=== PATIENT | female | born 1995 | race American Indian/Alaskan Native ===

== ENCOUNTER 2017-01-31 15:33 | Emergency (ER) | payer MEDICAID, OTHER ==
--- NOTE | 2017-01-31 16:20 | Emergency Department Report ---
Chief Complaint: Abdominal Pain Stated Complaint: 5 WKS PREG/CRAMPING Time Seen by Provider: 01/31/17 16:17 - HPI History of Present Illness: PT states she is 5 weeks and cramping. - ROS Review of Systems: + generalized fatigue + abd cramping + home test - Exam Vital Signs: Vital Signs 01/31/17 16:11 Temperature 99 F Pulse Rate 91 H Respiratory 16 Rate Blood Pressure 147/89 O2 Sat by Pulse 100 Oximetry Physical Exam: pt looks well, non toxic no focal weakness noted steady gait MSE screening note: Focused history and physical exam performed. Due to findings the following was ordered: us, lab ED Disposition for MSE Condition: Stable Instructions: Abdominal Pain (ED)
[2017-01-31 16:37] LABS: Eosinophils % (Auto) 0.2 % (0.0-4.3); Hematocrit 34.2 % (30.3-42.9); Hemoglobin 10.8 gm/dl (10.1-14.3); Mean Corpuscular HGB Conc 32 % (30-34); Mean Corpuscular Volume 82 fl (79-97); Platelet Count 309 K/mm3 (140-440); Red Blood Count 4.18 M/mm3 (3.65-5.03); Red Cell Distribution Width 17.8 % (13.2-15.2); White Blood Count 4.8 K/mm3 (4.5-11.0)
[2017-01-31 16:38] LABS: Mean Corpuscular Hemoglobin 26 pg (28-32)
[2017-01-31 16:56] LABS: Alanine Aminotransferase 11 units/L (7-56); Albumin 4.2 g/dL (3.9-5); Albumin/Globulin Ratio 1.1 %; Alkaline Phosphatase 66 units/L (35-129); Anion Gap 19 mmol/L; BUN/Creatinine Ratio 13.33; Blood Urea Nitrogen 8 mg/dL (7-17); Calcium 9.4 mg/dL (8.4-10.2); Carbon Dioxide 23 mmol/L (22-30); Chloride 97.7 mmol/L (98-107); Glucose 100 mg/dL (65-100); Lipase 23 units/L (13-60); Sodium 136 mmol/L (137-145)
--- NOTE | 2017-01-31 19:48 | Ultrasound Report ---
FINAL REPORT PROCEDURE: US OB trans abdominal and transvaginal TECHNIQUE: Real-time transabdominal and transvaginal sonography of the uterus, placenta, amniotic fluid, adnexa, and fetus was performed with image documentation. Measurements were obtained to determine age/size. M-mode Doppler was used to document heartbeat. CPT 58564 and 47096 HISTORY: Cramping. . COMPARISON: No prior studies are available for comparison. FINDINGS: LMP: 12/22/2016. Clinical age: 5 weeks 5 days. EDC: 09/28/2017. CRL: 4.6 millimeters, which corresponds to a gestational age of: 6 weeks, 2 days. Yolk Sac: Normal. Embryonic Cardiac Activity: 113 beats per minute. Gestational Sac: Small subchorionic hemorrhage measuring 4.2 millimeters.. Amniotic fluid: Normal. Cervix: Normal. Right Ovary: 3.8 x 1.6 x 3.9 centimeters. Normal flow. Left Ovary: Limited evaluation Uterus: 9.3 x 4.8 x 6.6 centimeters. Estimated delivery date: 09/24/2017. IMPRESSION: 1. Single live intrauterine gestation at approximately 6 weeks, 2 days. 2. EDC by US 09/24/2017. 3. Complete anatomic survey at 18-20 weeks suggested. At this time small subchorionic hemorrhage can be re-evaluated.
--- NOTE | 2017-01-31 19:50 | Ultrasound Report ---
FINAL REPORT PROCEDURE: US OB trans abdominal and transvaginal TECHNIQUE: Real-time transabdominal and transvaginal sonography of the uterus, placenta, amniotic fluid, adnexa, and fetus was performed with image documentation. Measurements were obtained to determine age/size. M-mode Doppler was used to document heartbeat. CPT 73353 and 34959 HISTORY: Cramping. . COMPARISON: No prior studies are available for comparison. FINDINGS: LMP: 12/22/2016. Clinical age: 5 weeks 5 days. EDC: 09/28/2017. CRL: 4.6 millimeters, which corresponds to a gestational age of: 6 weeks, 2 days. Yolk Sac: Normal. Embryonic Cardiac Activity: 113 beats per minute. Gestational Sac: Small subchorionic hemorrhage measuring 4.2 millimeters.. Amniotic fluid: Normal. Cervix: Normal. Right Ovary: 3.8 x 1.6 x 3.9 centimeters. Normal flow. Left Ovary: Limited evaluation Uterus: 9.3 x 4.8 x 6.6 centimeters. Estimated delivery date: 09/24/2017. IMPRESSION: 1. Single live intrauterine gestation at approximately 6 weeks, 2 days. 2. EDC by US 09/24/2017. 3. Complete anatomic survey at 18-20 weeks suggested. At this time small subchorionic hemorrhage can be re-evaluated.
--- NOTE | 2017-02-01 02:05 | Emergency Department Report ---
ED HPI - General Chief complaint: Abdominal Pain Stated complaint: 5 WKS PREG/CRAMPING Time Seen by Provider: 01/31/17 16:17 Source: patient Mode of arrival: Ambulatory Limitations: No Limitations - History of Present Illness Initial comments: This is a 21-year-old female. She is previously unknown to me. She is 1, para 0. Last menstrual period is December 22. No care, does not have a private hydraulic miner blasting. Presents to the ER with abdominal cramping. This is intermittent for one week. It does not radiate anywhere. No exacerbating or relieving factors. No headache, neck pain, chest pain, nausea, vomiting, shortness of breath. Denies vaginal bleeding, and irritative/obstructive urinary symptoms. -: Gradual Location: abdomen Radiation: none Severity: mild Quality: cramping Consistency: intermittent Improves with: none Worsens with: none Associated symptoms: denies other symptoms - Related Data Previous Rx's Medication Instructions Recorded Last Taken Type Doxylamine/Pyridoxine HCl 1 each PO QHS PRN #30 tablet. 02/01/17 Unknown Rx [Precious See 10-10 mg Tablet] Vit W-Ca,Fe,FA(<1 mg) 1 each PO QDAY #30 tablet 02/01/17 Unknown Rx [ Vitamins] Allergies Allergy/AdvReac Type Severity Reaction Status Date / Time No Known Allergies Allergy Verified 01/31/17 16:14 ED Review of Systems ROS: Stated complaint: 5 WKS PREG/CRAMPING Other details as noted in HPI Constitutional: denies: fever Eyes: denies: vision change ENT: denies: epistaxis Respiratory: denies: shortness of breath Cardiovascular: denies: chest pain Gastrointestinal: denies: vomiting Genitourinary: denies: dysuria, abnormal menses Musculoskeletal: denies: back pain Skin: denies: lesions Neurological: denies: weakness ED Past Medical Hx - Past Medical History Previous Medical History?: No - Surgical History Past Surgical History?: No - Social History Smoking Status: Current Some Day Smoker Substance Use Type: None, Marijuana - Medications Home Medications: Home Medications Medication Instructions Recorded Confirmed Last Taken Type Doxylamine/Pyridoxine HCl 1 each PO QHS PRN #30 tablet. 02/01/17 Unknown Rx [Precious See 10-10 mg Tablet] Vit W-Ca,Fe,FA(<1 mg) 1 each PO QDAY #30 tablet 02/01/17 Unknown Rx [ Vitamins] ED Physical Exam - General Limitations: No Limitations General appearance: alert, in no apparent distress - Head Head exam: Present: atraumatic, normocephalic - Eye Eye exam: Present: normal appearance, EOMI. Absent: nystagmus - ENT ENT exam: Present: normal exam, normal orophraynx, mucous membranes moist, normal external ear exam - Neck Neck exam: Present: normal inspection, full ROM. Absent: tenderness, meningismus - Respiratory Respiratory exam: Present: normal lung sounds bilaterally. Absent: respiratory distress, wheezes, rales, rhonchi, stridor, chest wall tenderness - Cardiovascular Cardiovascular Exam: Present: regular rate, normal rhythm, normal heart sounds. Absent: bradycardia, tachycardia, irregular rhythm, systolic murmur, diastolic murmur, rubs, gallop - GI/Abdominal GI/Abdominal exam: Present: soft, normal bowel sounds. Absent: distended, tenderness, guarding, rebound, rigid, pulsatile mass - Extremities Exam Extremities exam: Present: normal inspection, full ROM, normal capillary refill. Absent: tenderness, pedal edema, joint swelling, calf tenderness - Back Exam Back exam: Present: normal inspection, full ROM. Absent: tenderness, CVA tenderness (R), CVA tenderness (L), muscle spasm, paraspinal tenderness, vertebral tenderness - Neurological Exam Neurological exam: Present: alert, oriented X3, normal gait, other (Extraocular movements intact. Tongue midline. No facial droop. Facial sensation intact to light touch in the V1, V2, V3 distribution bilaterally. 5 and 5 strength in 4 extremities.. Sensation is intact to light touch in 4 extremities.). Absent : motor sensory deficit - Psychiatric Psychiatric exam: Present: normal affect, normal mood - Skin Skin exam: Present: warm, dry, intact, normal color. Absent: rash ED Course Vital Signs 01/31/17 02/01/17 02/01/17 16:11 01:55 01:57 Temperature 99 F Pulse Rate 91 H 82 Respiratory 16 16 18 Rate Blood Pressure 147/89 125/74 O2 Sat by Pulse 100 100 100 Oximetry - Reevaluation(s) Reevaluation #1: 02/01/17 02:26 Urinalysis contaminated, patient denies symptoms, she can follow up with an outpatient hydraulic miner blasting for this. ED Medical Decision Making - Lab Data Result diagrams: 01/31/17 16:20 01/31/17 16:20 Vital Signs 01/31/17 02/01/17 02/01/17 16:11 01:55 01:57 Temperature 99 F Pulse Rate 91 H 82 Respiratory 16 16 18 Rate Blood Pressure 147/89 125/74 O2 Sat by Pulse 100 100 100 Oximetry Lab Results 01/31/17 01/31/17 01/31/17 Range/Units 16:20 16:20 16:20 WBC 4.8 (4.5-11.0) K/mm3 RBC 4.18 (3.65-5.03) M/mm3 Hgb 10.8 (10.1-14.3) gm/dl Hct 34.2 (30.3-42.9) % MCV 82 (79-97) fl MCH 26 L (28-32) pg MCHC 32 (30-34) % RDW 17.8 H (13.2-15.2) % Plt Count 309 (140-440) K/mm3 Lymph % (Auto) 29.6 (13.4-35.0) % Castro % (Auto) 7.1 (0.0-7.3) % Eos % (Auto) 0.2 (0.0-4.3) % Baso % (Auto) 1.0 (0.0-1.8) % Lymph # 1.4 (1.2-5.4) K/mm3 Castro # 0.3 (0.0-0.8) K/mm3 Eos # 0.0 (0.0-0.4) K/mm3 Baso # 0.0 (0.0-0.1) K/mm3 Seg Neutrophils % 62.1 (40.0-70.0) % Seg Neutrophils # 3.0 (1.8-7.7) K/mm3 Sodium 136 L (137-145) mmol/L Potassium 4.0 (3.6-5.0) mmol/L Chloride 97.7 L (98-107) mmol/L Carbon Dioxide 23 (22-30) mmol/L Anion Gap 19 mmol/L BUN 8 (7-17) mg/dL Creatinine 0.6 L (0.7-1.2) mg/dL Estimated GFR > 60 ml/min BUN/Creatinine Ratio 13.33 % Glucose 100 (65-100) mg/dL Calcium 9.4 (8.4-10.2) mg/dL Total Bilirubin 0.50 (0.1-1.2) mg/dL AST 13 (5-40) units/L ALT 11 (7-56) units/L Alkaline Phosphatase 66 (35-129) units/L Total Protein 8.0 (6.3-8.2) g/dL Albumin 4.2 (3.9-5) g/dL Albumin/Globulin Ratio 1.1 % Lipase 23 (13-60) units/L HCG, Quant [id number] H (0-4) mIU/mL Blood Type 01/31/17 Range/Units 16:20 WBC (4.5-11.0) K/mm3 RBC (3.65-5.03) M/mm3 Hgb (10.1-14.3) gm/dl Hct (30.3-42.9) % MCV (79-97) fl MCH (28-32) pg MCHC (30-34) % RDW (13.2-15.2) % Plt Count (140-440) K/mm3 Lymph % (Auto) (13.4-35.0) % Castro % (Auto) (0.0-7.3) % Eos % (Auto) (0.0-4.3) % Baso % (Auto) (0.0-1.8) % Lymph # (1.2-5.4) K/mm3 Castro # (0.0-0.8) K/mm3 Eos # (0.0-0.4) K/mm3 Baso # (0.0-0.1) K/mm3 Seg Neutrophils % (40.0-70.0) % Seg Neutrophils # (1.8-7.7) K/mm3 Sodium (137-145) mmol/L Potassium (3.6-5.0) mmol/L Chloride (98-107) mmol/L Carbon Dioxide (22-30) mmol/L Anion Gap mmol/L BUN (7-17) mg/dL Creatinine (0.7-1.2) mg/dL Estimated GFR ml/min BUN/Creatinine Ratio % Glucose (65-100) mg/dL Calcium (8.4-10.2) mg/dL Total Bilirubin (0.1-1.2) mg/dL AST (5-40) units/L ALT (7-56) units/L Alkaline Phosphatase (35-129) units/L Total Protein (6.3-8.2) g/dL Albumin (3.9-5) g/dL Albumin/Globulin Ratio % Lipase (13-60) units/L HCG, Quant (0-4) mIU/mL Blood Type O POSITIVE - Radiology Data Radiology results: report reviewed, image reviewed Obstetrics ultrasound demonstrates intrauterine , 5 weeks and 5 days, heartbeat 113 bpm, small subchronic hemorrhage. - Medical Decision Making Differential diagnosis: Miscarriage, urinary tract infection, reassurance and first Assessment and plan: 21-year-old female who is afebrile with reassuring vital signs, with a benign physical examination, no abdominal tenderness, rebound or guarding. Found to have small subchorionic hemorrhage, clinical picture most likely consistent with threatened miscarriage. No vaginal bleeding at this time , no pelvic pain or lower abdominal pain or tenderness at this time, therefore, the patient does not require an emergent gynecologic examination. Rh+, urinalysis is pending at this time. Critical care attestation.: If time is entered above; I have spent that time in minutes in the direct care of this critically ill patient, excluding procedure time. ED Disposition Clinical Impression: Threatened Disposition: [id number] TO HOME OR SELFCARE Is pt being admited?: No Does the pt Need Aspirin: No Condition: Stable Instructions: Threatened Miscarriage (ED) Additional Instructions: Take the medications as directed. Follow up with her primary care hydraulic miner blasting as soon as possible to initiate care. Rest and avoid heavy lifting, avoid strenuous physical activity, and do not engage in sexual activity until cleared by a hydraulic miner blasting. Return to the ER right away with new pain, worsened pain, migration of pain, fevers, chills, confusion, intractable nausea or vomiting, bleeding more than 2 pads soaked per hour. Prescriptions: Doxylamine/Pyridoxine HCl [Precious See 10-10 mg Tablet] 1 each PO QHS PRN #30 tablet. PRN Reason: Nausea Vit W-Ca,Fe,FA(<1 mg) [ Vitamins] 1 each PO QDAY #30 tablet Referrals: PRIMARY CARE, [Primary Care Provider] - 3-5 Days [facility] [Provider Group] - 3-5 Days [facility] [Provider Group] - 3-5 Days [facility] [Provider Group] - 3-5 Days
[2017-02-01 02:23] LABS: Bacteria,Urine 1+ /HPF (Negative); Bilirubin,Urine NEG (Negative); Blood,Urine NEG (Negative); Ketones,Urine NEG (Negative); Leukocyte Esterase,Urine LG (Negative); Mucus,Urine FEW /HPF; Nitrite,Urine NEG (Negative); Protein,Urine <15 mg/dL mg/dL (Negative); Urobilinogen,Urine < 2.0 mg/dL (<2.0)
[2017-02-01 02:44] VITALS: BP 123/74
== END 2017-02-01 02:45 | disposition home or self-care (01) ==
LOC: ED 15:33
DX: O20.0 Threatened abortion (principal); F17.210 Nicotine dependence, cigarettes, uncomplicated; F12.10 Cannabis abuse, uncomplicated; Z3A.01 Less than 8 weeks gestation of pregnancy
CPT/HCPCS: 36415; 76801; 76817; 80053; 81001; 83690; 84702; 85025; 86900; 86901; 99284